=== PATIENT | female | born 1945 | race Caucasian/White ===

== ENCOUNTER → 2017-06-12 | Outpatient (CLI) | payer OTHER | LOC: HYPER 07:00 | DX: I89.0 Lymphedema, not elsewhere classified (principal); I87.2 Venous insufficiency (chronic) (peripheral); I10 Essential (primary) hypertension; J45.909 Unspecified asthma, uncomplicated; Z85.841 Personal history of malignant neoplasm of brain; Z87.891 Personal history of nicotine dependence ==